=== PATIENT | female | born 1955 | race Hispanic/Latino ===

== ENCOUNTER 2021-06-17 05:30 | Observation (INO) | payer MEDICARE ==
[2021-06-16 12:48] LABS: BASOPHILS % (AUTO) 0.8 % (0.0-5.0); EOSINOPHILS % (AUTO) 1.4 % (0.0-8.0); HEMATOCRIT 40.7 % (36-48); LYMPHOCYTES % (AUTO) 26.6 % (21.0-51.0); MEAN CORPUSCULAR HEMOGLOBIN 30.7 pg (27.0-33.0); MEAN CORPUSCULAR HGB CONC 32.9 g/dL (32.0-36.0); MEAN CORPUSCULAR VOLUME 93.3 fL (79-99); MONOCYTES % (AUTO) 7.4 % (3.0-13.0); NEUTROPHILS % (AUTO) 63.6 % (40.0-77.0); PLATELET COUNT (AUTO) 227 K/uL (130-400); RED BLOOD CELL COUNT(AUTO) 4.36 MIL/uL (4.00-5.50)
[2021-06-17] VITALS (25 sets, daily range): BP systolic 99–146; BP diastolic 52–89
[~2021-06-17] VITALS: Ht 172.7 cm; Wt 67.4 kg
[~2021-06-17 05:30] MED LIST: ALPR0.5T8 PO; CLINDAMYCIN IVPB 600MG/50ML 50 ML IV SCH; L.AC1CAP6 PO; MULT-1203 PO; MULT-1283 PO
[2021-06-17] MEDS ORDERED: LACTATED RINGERS 1000ML 1,000 ML IV ONE (06:02)
[2021-06-17] MEDS ORDERED: PROPOFOL 10 MG/ML 20ML VIAL IV ONE (07:11)
[2021-06-17] MEDS ORDERED: ROCURONIUM 10MG/1ML SYR 10 MG/ML ML ONE (07:11)
[2021-06-17] MEDS ORDERED: LIDOCAINE PF 100MG/5ML (2%) SYRINGE 5ML ONE (07:11)
[2021-06-17] MEDS ORDERED: ONDANSETRON 4MG INJ ONE ×2 (07:11→10:07)
[2021-06-17] MEDS ORDERED: GLYCOPYRROLATE 1 MG/5 ML SYRINGE ONE ×2 (07:11→11:12)
[2021-06-17] MEDS ORDERED: FENTANYL CITRATE PF 50 MCG/1 ML 2ML VIAL ONE ×2 (07:12→10:56)
[2021-06-17] MEDS ORDERED: FAMOTIDINE 20MG VIAL IV ONE (07:15)
[2021-06-17] MEDS ORDERED: HYDROMORPHONE 1 MG INJ ONE (07:16)
[2021-06-17] MEDS ORDERED: MIDAZOLAM HCL 1 MG/ML 2ML VIAL ONE (08:08)
[2021-06-17] MEDS ORDERED: NEOSTIGMINE 5MG/5ML SYR IV ONE (09:52)
[2021-06-17] MEDS ORDERED: ONDANSETRON 4MG INJ IVP PRN (12:00)
[2021-06-17] MEDS ORDERED: IBUPROFEN 600 MG TABLET PO PRN (12:00)
[2021-06-17] MEDS ORDERED: PROMETHAZINE HCL 25 MG/ML 1ML AMPULE IM PRN (12:00)
[2021-06-17] MEDS ORDERED: ACETAMINOPHEN WITH CODEINE 1 TAB TAB PO PRN (12:00)
[2021-06-17] MEDS ORDERED: BISACODYL 10 MG SUPP.RECT RC PRN (12:00)
[2021-06-17] MEDS ORDERED: SIMETHICONE 80 MG TAB.CHEW PO PRN (12:00)
[2021-06-17] MEDS ORDERED: DOCUSATE SODIUM 100 MG CAP PO PRN (12:00)
[2021-06-17] MEDS: PROMETHAZINE HCL 25 MG/ML 1ML AMPULE IM PRN ×2 (12:11→14:55)
[2021-06-17] MEDS: MEPERIDINE-PF 75 MG/ML SYG IM PRN ×2 (12:11→14:55)
[2021-06-17] MEDS: DEXTROSE 5 %-0.45 % NACL 1,000 ML IV PRN ×2 (12:12→19:44)
[2021-06-18] MEDS: DEXTROSE 5 %-0.45 % NACL 1,000 ML IV PRN (03:04)
[2021-06-18 03:19] VITALS: BP 94/57
[2021-06-18 06:29] LABS: HEMATOCRIT 34.3 % (36-48); MEAN CORPUSCULAR HEMOGLOBIN 30.6 pg (27.0-33.0); MEAN CORPUSCULAR HGB CONC 32.7 g/dL (32.0-36.0); MEAN CORPUSCULAR VOLUME 93.7 fL (79-99); RED BLOOD CELL COUNT(AUTO) 3.66 MIL/uL (4.00-5.50); WHITE BLOOD COUNT (AUTO) 8.3 K/uL (4.8-10.8)
[2021-06-18] MEDS ORDERED: BISACODYL 10 MG SUPP.RECT RC PRN (06:30)
[2021-06-18] MEDS ORDERED: HYDROCODONE/ACETAMINOPHEN 5/325 MG TAB PO PRN (06:30)
[2021-06-18 07:50] VITALS: BP 98/53
[2021-06-18] MEDS: DOCUSATE SODIUM 100 MG CAP PO PRN ×2 (08:37→21:17)
[2021-06-18] MEDS: SIMETHICONE 80 MG TAB.CHEW PO PRN ×3 (08:37→21:17)
[2021-06-18] MEDS: IBUPROFEN 800 MG TAB PO PRN ×2 (08:38→17:39)
[2021-06-18 11:24] VITALS: BP 113/60
[2021-06-18 15:15] VITALS: BP 95/47
[2021-06-18] MEDS: ACETAMINOPHEN WITH CODEINE 1 TAB TAB PO PRN (19:18)
[2021-06-18 19:21] VITALS: BP 117/60
[2021-06-18 23:02] VITALS: BP 89/55
[2021-06-19 04:07] VITALS: BP 92/52
[2021-06-19] MEDS: ACETAMINOPHEN WITH CODEINE 1 TAB TAB PO PRN (06:20)
[2021-06-19 07:55] VITALS: BP 89/51
[2021-06-19] MEDS: DOCUSATE SODIUM 100 MG CAP PO PRN (09:04)
[2021-06-19] MEDS: SIMETHICONE 80 MG TAB.CHEW PO PRN (09:04)
[2021-06-19 13:15] VITALS: BP 115/68
== END 2021-06-19 13:20 | disposition home or self-care (01) ==
LOC: DAH 05:30 → DAHIP 05:31 → WSH 11:45
PROVIDERS: ADMIT Obstetrics & Gynecology; ATTEND Obstetrics & Gynecology
DX: N81.3 Complete uterovaginal prolapse (principal); Z20.822 Contact with and (suspected) exposure to COVID-19; K21.9 Gastro-esophageal reflux disease without esophagitis; Z79.899 Other long term (current) drug therapy; Z88.0 Allergy status to penicillin; Z90.710 Acquired absence of both cervix and uterus
CPT/HCPCS: 36415 ×2; 57265; 57288; 58552; 85025; 85027; 86850; 86900; 86901; 87635; 96372; A4213; A4215; A4216; A4221; A4222; A4223 ×2; A4351; A4510; A4600; A4606; A4663; C1771; C9803; G0378 ×50; J1170; J2001; J2175 ×2; J2250; J2405 ×2; J2550 ×2; J2704; J2710; J3010 ×2; J3490 ×4; J7120 ×2

== ENCOUNTER 2021-10-14 17:30 | Emergency (ER) | payer MEDICARE ==
[~2021-10-14] VITALS: Ht 172.7 cm; Wt 68.0 kg
[~2021-10-14 17:30] MED LIST changes: -CLINDAMYCIN IVPB 600MG/50ML 50 ML IV SCH
[2021-10-14 17:49] LABS: APPEARANCE,URINE CLOUDY (CLEAR); BILIRUBIN,URINE NEGATIVE (NEGATIVE); COLOR,URINE YELLOW (YELLOW); GLUCOSE, URINE (UA) NEGATIVE (NEGATIVE); KETONES,URINE NEGATIVE (NEGATIVE); LEUKOCYTE ESTERASE ,URINE MODERATE (NEGATIVE); NITRATE,URINE NEGATIVE (NEGATIVE); OCCULT BLOOD,URINE LARGE (NEGATIVE); PH,URINE 7.5 (5.0-8.0); PROTEIN,URINE TRACE mg/dL (NEGATIVE); UROBILINOGEN,URINE 0.2 mg/dL (0.2-1.0)
[2021-10-14 17:58] LABS: BACTERIA,URINE Few /HPF (None Seen); MUCUS,URINE Few LPF (None Seen); RBC,URINE 26-50 /HPF (0-1); SQUAMOUS EPITHELIAL CELL,UR Few /HPF (0-2); TRANSITIONAL EPI CELLS,URINE Rare /HPF (None Seen)
[2021-10-14] MEDS ORDERED: MACR100 PO (18:02)
[2021-10-14] MEDS ORDERED: PHEN-847 PO (18:02)
[2021-10-14 18:13] LABS: BASOPHILS % (AUTO) 0.4 % (0.0-5.0); EOSINOPHILS % (AUTO) 1.8 % (0.0-8.0); HEMATOCRIT 39.2 % (36-48); LYMPHOCYTES % (AUTO) 31.8 % (21.0-51.0); MEAN CORPUSCULAR HEMOGLOBIN 30.3 pg (27.0-33.0); MEAN CORPUSCULAR HGB CONC 33.7 g/dL (32.0-36.0); MEAN CORPUSCULAR VOLUME 90.1 fL (79-99); MONOCYTES % (AUTO) 8.7 % (3.0-13.0); NEUTROPHILS % (AUTO) 57.2 % (40.0-77.0); PLATELET COUNT (AUTO) 200 K/uL (130-400); RED BLOOD CELL COUNT(AUTO) 4.35 MIL/uL (4.00-5.50); RED CELL DISTRIBUTION WIDTH 12.9 % (11.0-15.5); WHITE BLOOD COUNT (AUTO) 7.2 K/uL (4.8-10.8)
[2021-10-14 18:23] LABS: POTASSIUM 3.8 mmol/L (3.5-5.1)
[2021-10-14 18:33] LABS: TOTAL PROTEIN, SERUM 7.8 g/dL (6.0-8.3)
[2021-10-14 19:04] VITALS: BP 128/61
== END 2021-10-14 19:33 | disposition home or self-care (01) ==
LOC: EDH 17:30
DX: N39.0 Urinary tract infection, site not specified (principal); Z88.0 Allergy status to penicillin; Z79.899 Other long term (current) drug therapy; Z98.890 Other specified postprocedural states
CPT/HCPCS: 36415; 80053; 81001; 85025; 87088